=== PATIENT | male | born 1955 | race Caucasian/White ===

== ENCOUNTER 2017-05-25 14:31 | Emergency (ER) | payer SELFPAY ==
[2017-05-25 14:44] VITALS: RESP 16
[2017-05-25] MEDS ORDERED: ONDANSETRON 4 MG/2 ML VIAL IVP ONE ×2 (14:44→14:57)
[2017-05-25] MEDS ORDERED: NS 1,000 ML IV ONE ×2 (14:46→14:57)
[2017-05-25] MEDS ORDERED: PROMETHAZINE HCL 25 MG/ML INJ IVP ONE (14:57)
[2017-05-25] MEDS ORDERED: FAMOTIDINE 20 MG in NS 100 ML IV ONE (14:57)
--- NOTE | 2017-05-25 15:23 | EDPHY ---
H & P Time Seen by Provider: 05/25/17 14:55 HPI/ROS: HPI Nausea, dehydration, history of stomach cancer. 62-year-old male with history of advanced stomach cancer with metastasis to the liver presents to the emergency department with family and friends. He is from [place]. He lives on [facility]. He was diagnosed with stomach cancer about 1 month ago. He has had blood work in [place] as well as CT imaging of his abdomen and pelvis in [place]. He and family have a friend in the [place] area. He came here to go to the cancer center at the [facility] for further evaluation and treatment. 2 days ago he started feeling nauseous. He has been eating less because of this. He has also had several episodes of vomiting clear fluid. This is described to me as small volume in nature. No blood or coffee-ground emesis. He has had bowel movements but states that they are small because he has not been eating much. His significant other tells me that he had a coffee ground enema this morning and she has been giving him now trip a thick treatments with juices. They are declining any blood work or medications. They are requesting IV fluids. I discussed the reasoning for blood work as well as antiemetics. In my professional opinion he understands this reasoning but declined this treatment and evaluation regardless. He has not had any chemotherapy or radiation therapy. ROS: Constitutional: No fever, no chills. Generalized weakness and feeling dehydrated. Eyes: No discharge. No changes in vision. ENT: No sore throat. No nasal congestion or rhinorrhea. Respiratory: No cough. No shortness of breath. Cardiac: No chest pain, no palpitations. Gastrointestinal: No abdominal pain, as above, no diarrhea. Genitourinary: No hematuria. No dysuria or increased frequency with urination. Musculoskeletal: No back pain. No neck pain. No myalgias or arthralgias. Skin: No rashes. Neurological: No headache. No focal weakness or altered sensation. Past medical history: Advanced metastatic stomach cancer with metastasis to the liver, alcohol abuse, cholecystectomy Social history: Smoker. Alcohol abuse. From [place] where he lives on [facility]. Physical Exam: General Appearance: Alert, no distress. Jaundiced. This patient is responding to questions appropriately and in full sentences. This patient generally appears well-hydrated and well-nourished. Eyes: Pupils equal and round no pallor or injection. No lid edema, erythema or injection. Respiratory: There are no retractions, lungs are clear to auscultation anteriorly with good air movement bilaterally. Cardiovascular: Regular rate and rhythm. Mild tachycardia. No murmur. Gastrointestinal: Abdomen is soft mild and vague tenderness throughout, recent liver biopsy site right upper quadrant clean dry and intact and without evidence of infection, large masses palpated throughout the right side of his abdomen, bowel sounds diminished but present. No focal tenderness at McBurney' s point. No Rudd sign. Neurological: Motor sensory function is grossly intact. Cranial nerves are normal. Gait is normal. Skin: Warm and dry, no rashes. Jaundiced. Musculoskeletal: Neck is supple and nontender. Extremities are symmetrical. All joints range without pain or impingement. Psychiatric: No agitation. Flat affect. Database: EKG: Imaging: Procedures: Emergency department course: An IV was placed. He was started on IV normal saline with 2 L to be given over the next 1-2 hours. As above he declined any antiemetics or other medications or further evaluation in the emergency department. History of vital signs were reviewed. He is mildly tachycardic with a heart rate of 110. He is afebrile. Blood pressure normal. 4:30 p.m., patient re-evaluated. He states that he does feel better. His vital signs were reviewed. He still remains mildly tachycardic. He and his significant other still decline further treatment or testing. I emphasized follow up with the Cancer Center at the [facility]. I also explained I will provide a referral to 1 of our oncologists here [facility]. They are requesting discharge. They understand his follow- up. Return to emergency department precautions were reviewed. All of their questions were answered. The patient was discharged in good condition. Differential Diagnosis: The differential diagnosis on this patient includes but is not limited to dehydration, advanced gastric carcinoma with metastasis. Bowel obstruction, bowel perforation, other acute surgical process unlikely. This represents a partial list of diagnoses considered. These considerations are based on history , physical exam, past history, reassessment and diagnostic testing. Smoking Status: Never smoked Constitutional: Initial Vital Signs Temperature (C) 36.3 C 05/25/17 14:33 Heart Rate 110 H 05/25/17 14:33 Respiratory Rate 16 05/25/17 14:33 Blood Pressure 131/95 H 05/25/17 14:33 O2 Sat (%) 93 05/25/17 14:33 O2 Delivery Mode Room Air Allergies/Adverse Reactions: No Known Allergies Allergy (Verified 05/25/17 14:44) Home Medications: Medication Instructions Recorded Herbals/Supplements -Info Only 05/25/17 Ondansetron Odt [Zofran Odt 4 mg 4 mg PO Q4PRN PRN #10 tab 05/25/17 (*)] Medical Decision Making - Data Points Medications Given: Discontinued Medications Sodium Chloride (Ns) 1,000 mls @ 0 mls/hr IV ONCE ONE PRN Reason: Wide Open Stop: 05/25/17 14:47 Last Admin: 05/25/17 15:58 Dose: 1,000 mls Sodium Chloride (Ns) 1,000 mls @ 0 mls/hr IV EDNOW ONE; Wide Open PRN Reason: Protocol Stop: 05/25/17 14:58 Last Admin: 05/25/17 15:15 Dose: 1,000 mls Famotidine 20 mg/ Sodium (Chloride) 102 mls @ 408 mls/hr IV EDNOW ONE Stop: 05/25/17 15:11 Last Admin: 05/25/17 15:59 Dose: Not Given Ondansetron HCl (Zofran) 4 mg IVP EDNOW ONE Stop: 05/25/17 14:45 Last Admin: 05/25/17 15:59 Dose: Not Given Ondansetron HCl (Zofran) 4 mg IVP EDNOW ONE Stop: 05/25/17 14:58 Last Admin: 05/25/17 16:00 Dose: Not Given Promethazine HCl (Phenergan) 6.25 mg IVP EDNOW ONE Stop: 05/25/17 14:58 Last Admin: 05/25/17 16:00 Dose: Not Given Departure - Departure Disposition: Home, Routine, Self-Care Clinical Impression: History of gastric cancer, Dehydration, Vomiting Condition: Good Instructions: Acute Nausea and Vomiting (ED) Additional Instructions: Read and follow provided instructions. Follow-up with the [facility] as discussed for further evaluation and management as soon as possible. I have also provided you with a referral to 1 of our local oncologists here at [facility]. Take medication as prescribed for nausea. Return to the emergency department for worsening abdominal pain, vomiting and inability to keep fluids down, fever or other serious concerns. Referrals: Angela Mccoy MD [Medical Doctor] - As per Instructions Prescriptions: Ondansetron Odt [Zofran Odt 4 mg (*)] 4 mg PO Q4PRN PRN #10 tab PRN Reason: For Nausea & Vomiting
[2017-05-25 16:52] VITALS: BP 114/78; PULSE 112; TEMP 97.7; O2SAT 94
== END 2017-05-25 16:43 | disposition home or self-care (01) ==
LOC: CED 14:31
DX: E86.0 Dehydration (principal); E86.9 Volume depletion, unspecified; F17.200 Nicotine dependence, unspecified, uncomplicated; Z85.028 Personal history of other malignant neoplasm of stomach; Z85.05 Personal history of malignant neoplasm of liver